=== PATIENT | male | born 1955 | race Caucasian/White ===

== ENCOUNTER 2019-01-18 06:19 | Day surgery (SDC) | payer OTHER ==
[~2019-01-18] VITALS: Ht 170.2 cm; Wt 73.5 kg
[2019-01-18] MEDS ORDERED: MIDAZOLAM 2 MG/2 ML VIAL ONE (08:29)
[2019-01-18] MEDS ORDERED: fentaNYL 0.05 MG/ML VIAL ONE (08:29)
== END 2019-01-18 10:30 | disposition home or self-care (01) ==
LOC: MDS 06:19 → MMU 06:25 → MDS 10:30
PROVIDERS: ATTEND Internal Medicine Gastroenterology
DX: C16.9 Malignant neoplasm of stomach, unspecified (principal); K21.9 Gastro-esophageal reflux disease without esophagitis; Z79.899 Other long term (current) drug therapy; Z93.1 Gastrostomy status; Z98.890 Other specified postprocedural states; Z98.0 Intestinal bypass and anastomosis status
CPT/HCPCS: 43239; 88305; 88313; 88342; J2250; J7030; J3010